=== PATIENT | female | born 1960 | race Caucasian/White ===

== ENCOUNTER 2017-10-16 07:50 | Outpatient (CLI) | payer BC | END 2017-10-16 07:51 | disposition home or self-care (01) | LOC: BICMAMMO 07:50 | PROVIDERS: ATTEND Obstetrics & Gynecology | DX: Z12.31 Encounter for screening mammogram for malignant neoplasm of breast (principal) | CPT/HCPCS: 77063; 77067 ==

== ENCOUNTER 2018-09-15 13:30 | Outpatient (CLI) | payer BC ==
[2018-09-15 14:14] LABS: Mean Corpuscular HGB CONC 34.5 g/dL (32.0-36.0); Mean Corpuscular Hemoglobin 33.9 pg (27.0-31.0); Mean Corpuscular Volume 98.3 fL (78.0-98.0); Mean Platelet Volume 8.4 fL (7.4-10.4); Platelet Count 213 thou/uL (130-400); RBC Distribution Width 11.4 % (11.5-14.5); Red Blood Cell (RBC) Count 4.14 mill/uL (4.20-5.40); White Blood Cell (WBC) Count 4.5 thou/uL (4.8-10.8)
== END 2018-09-15 13:31 | disposition home or self-care (01) ==
LOC: LABBT 13:30
PROVIDERS: ATTEND Obstetrics & Gynecology
DX: Z01.812 Encounter for preprocedural laboratory examination (principal); D25.9 Leiomyoma of uterus, unspecified; R10.2 Pelvic and perineal pain
CPT/HCPCS: 85027; 86850; 86900; 86901

== ENCOUNTER 2018-09-21 06:05 | Day surgery (SDC) | payer BC ==
[2018-09-15 16:31] VITALS: BMI 21.7
[2018-09-21] MEDS ORDERED: Bupivacaine HCl 0.5%/Epinephrine 1:200,000/PF 30 ml Vial ONE (06:28)
[2018-09-21] MEDS ORDERED: Gabapentin 300 MG CAP ONE (06:43)
[2018-09-21] MEDS ORDERED: CeleCOXIB 100 MG CAP ONE (06:43)
[2018-09-21] MEDS ORDERED: Famotidine/PF 20 mg/2ml Vial ONE (06:44)
[2018-09-21] MEDS ORDERED: Fentanyl 100 MCG/2 ML VIAL ONE (07:10)
[2018-09-21] MEDS ORDERED: Ropivacaine 0.2% 550 ML 750 ML NERVE BLCK SCH ×2 (07:45→09:30)
[2018-09-21] MEDS ORDERED: Bacitracin Zinc Ointment 30 gm TUBE ONE (09:25)
[2018-09-21] MEDS ORDERED: Ropivacaine HCl/PF 750 ML NERVE BLCK SCH (09:30)
[2018-09-21] MEDS ORDERED: diphenhydrAMINE 25 MG CAP PO PRN (09:31)
[2018-09-21] MEDS ORDERED: Morphine 4 MG/ML VIAL SLOW IVP PRN (09:31)
[2018-09-21] MEDS ORDERED: Promethazine HCl 25 MG/ML VIAL IM PRN ×2 (09:31→09:51)
[2018-09-21] MEDS ORDERED: HYDROcodone/Acetaminophen 5/325 mg Tablet PO PRN ×2 (09:31)
[2018-09-21] MEDS ORDERED: Bisacodyl 10 MG SUPP PR PRN (09:31)
[2018-09-21] MEDS ORDERED: Zolpidem Tartrate 5 MG TAB PO PRN (09:31)
[2018-09-21] MEDS ORDERED: Promethazine HCl 25 MG/ML VIAL SLOW IVP PRN (09:51)
[2018-09-21] MEDS ORDERED: Ondansetron HCl/PF 4 MG/2 ML Vial IVP PRN (09:51)
[2018-09-21] MEDS: Ketorolac Tromethamine 30 MG/ML VIAL IVP SCH ×3 (10:54→23:45)
[2018-09-21] MEDS: Sodium Chloride 0.9% 1,000 ML IV SCH ×3 (11:11→21:32)
[2018-09-21] MEDS ORDERED: Simethicone Chewable 80 MG TAB PO PRN (13:00)
--- NOTE | 2018-09-21 15:56 | OP ---
DATE OF PROCEDURE: 09/21/2018 PREOPERATIVE DIAGNOSES: Fibroid uterus, pelvic pain. POSTOPERATIVE DIAGNOSES: Fibroid uterus, pelvic pain. PROCEDURES PERFORMED: Robotic-assisted total laparoscopic hysterectomy with extracorporeal morcellation of fibroid uterus to self-contained bag and placement of On-Q pump. PATIENT ACCOUNTS SPECIALIST: Marlene Mckeon MD ANESTHESIA: GETA. COMPLICATIONS: None. ESTIMATED BLOOD LOSS: Approximately 50 mL. OPERATIVE FINDINGS: 1. Enlarged fibroid uterus with a dominant 5 to 6 cm fundal mass. Normal-appearing tubes and ovaries bilaterally. 2. Normal-appearing liver edge, and no intraabdominal adhesive disease. DESCRIPTION OF PROCEDURE: The patient was taken back to the OR with IV fluids running. Once the patient was in the OR, she was placed in dorsal supine position and general anesthesia was obtained. Once the patient was asleep, she was placed in low dorsal lithotomy position, and the abdomen and vagina were prepped and draped in normal fashion for gynecologic surgery. Surgeons were gowned and gloved and scrubbed in. Beginning vaginally, a Gutiérrez catheter was placed into the bladder and approximately 50 mL of urine drained. The Gutiérrez was then assembled to a Jailene syringe and placed onto the sterile field. An operative speculum was placed in the vagina and anterior lip of the cervix was identified and grasped with a single-tooth tenaculum. The uterus was sounded to approximately 7 to 8 cm. The cervix was serially dilated to allow for placement of Roma-Rich manipulator tip. Roma-Rich manipulator was assembled with an 8 cm tip and a 4 cm cervical cup, and placed into the uterus and vagina in routine fashion. The surgeon's gloves were changed and attention was then turned to the laparoscopic portion of the case. Beginning at the supraumbilical fold, local anesthesia was placed underneath the skin. A 12 mm skin incision was made with a scalpel. A Veress needle was placed through this incision and the abdomen was insufflated without difficulty. A 12 mm trocar was placed through this incision and the patient was then placed in Trendelenburg position and with the laparoscope through the port, the above findings were noted. At this time, the uterine specimen was examined with the laparoscope and decision was made to remove the specimen with a self-contained bag morcellation technique. Three additional ports were placed in similar fashion under direct visualization of the left and right lower quadrant 8 mm robotic ports and the right upper quadrant 11 mm port. Once all the ports were placed, the laparoscope and the 12 mm port were removed, and the supraumbilical incision was extended to approximately 2 cm. A mini-Reece was placed into the supraumbilical incision and a GelPOINT cap was placed over this retractor with the trocar advanced through the GelPOINT. Next, prior to placement of the GelPOINT lid, the laparoscopic bag was placed into the abdominal cavity. After the GelPOINT cap was replaced and the abdomen was insufflated, the patient was placed in Trendelenburg position and the robotic arms were docked to the robotic trocars. Beginning on the patient's left side, the left fallopian tube was elevated, grasped, and transected using a combination of bipolar and monopolar cautery. The left utero-ovarian ligament was cauterized and transected allowing the left ovary to fall away to the pelvic sidewall. The left ureter was easily visualized and noted to be well away from the planned dissection areas. The round ligament on the patient's left side was identified, cauterized, and transected. The anterior and posterior leaves were then dissected toward the level of the uterine artery. The anterior leaf was then dissected down over the cervix and the bladder was dissected away from the cervix and planned colpotomy site by layering the cervicovesical fascia and dissecting it away from the cervix. The uterine artery on the patient's left side was then skeletonized. It was then cauterized and transected. Attention was then turned to the contralateral side. The right fallopian tube was elevated and transected using a combination of monopolar and bipolar cautery. The right utero-ovarian ligament was cauterized and transected. The ureter on the patient's right side was noted to be well away from the uterus in planned dissection areas. The round ligament was identified, cauterized, and transected. The anterior and posterior leaves were dissected down toward the level of the uterine artery, which was then skeletonized. The anterior leaf was taken down to the contralateral side, where the bladder flap had been created. The bladder was then further dissected away from the planned colpotomy site. The uterine artery on the patient's right side was cauterized and transected. Once the blood supply had been managed on both sides of the uterus and the bladder flap had been created and the bladder dissected away from the colpotomy site, the colpotomy was then performed circumferentially under direct visualization and without difficulty. After the colpotomy was completed, the monopolar scissors were removed and a needle city driver was placed into the operative field. Stratafix suture was then introduced under direct visualization with the vaginal cuff was closed in a running fashion and in two layers. After the vaginal cuff was removed and the needle was removed from the operative field, the vaginal cuff and pelvic sidewalls were copiously irrigated and suctioned dry. No areas of bleeding were noted. The laparoscopic bag was then directed down into toward the cul-de-sac. It was opened up and the uterine specimen was placed into the bag. The bag was then brought through the GelPOINT without difficulty. The On-Q catheter tip was then placed under direct visualization in the anterior abdominal wall in the midline. The catheter was then directed down into the cul-de-sac and it was primed with 0.25% Marcaine. After the catheter was primed, the trocars were removed. The GelPOINT lid was removed and the laparoscopic bag was opened to the umbilical incision. The Reece mini retractor was then replaced within the laparoscopic bag over the next several minutes. The uterine and fibroid specimen was morcellated using a technique with a scalpel. After the entire specimen was morcellated, it was sent for pathologic review. The EndoCatch bag and Reece retractor were removed from the umbilical port. All instruments and counts were correct. The port sites were then cleaned. The fascia of the supraumbilical port was closed with Vicryl suture in a running fashion. All four skin incisions were then closed with Monocryl suture. The right upper quadrant and left and right lower quadrant ports were dressed with Dermabond dressing. Antibiotic ointment was placed over the umbilical incision. Sterile cotton balls and a Tegaderm dressing were placed over this incision, and a Tegaderm was placed over the On-Q catheter insertion site. The vagina was inspected at the end of the case with no bleeding noted. The patient tolerated the procedure well. She was cleaned, dried, taken out of lithotomy position, extubated, and transferred to the recovery room in good condition. Job ID: [id number]
[2018-09-21] MEDS: Ibuprofen 800 MG TAB PO SCH (21:30)
[2018-09-22 06:24] LABS: Hemoglobin 11.9 g/dL (12.0-16.0); Mean Corpuscular HGB CONC 34.2 g/dL (32.0-36.0); Mean Corpuscular Hemoglobin 34.1 pg (27.0-31.0); Mean Corpuscular Volume 99.5 fL (78.0-98.0); Mean Platelet Volume 8.5 fL (7.4-10.4); Platelet Count 155 thou/uL (130-400); RBC Distribution Width 11.6 % (11.5-14.5); White Blood Cell (WBC) Count 7.1 thou/uL (4.8-10.8)
[2018-09-22] MEDS: Ketorolac Tromethamine 30 MG/ML VIAL IVP SCH (06:33)
[2018-09-22 06:36] VITALS: TEMP 98.3
[2018-09-22 07:49] VITALS: BP 110/73
--- NOTE | 2018-09-22 08:26 | PDOC.EVN ---
Event Note - Event Note Event Note: PT seen and evaluated post op day 1. Pt is doing very well. Pain is well controlled. She has been up and ambulatory to the bathroom without difficulty. She is urinating normally. She is passing gas. She is eating well. No leg pain or swelling. VSS. H&H stable PT resting very comfortable in bed. No distress. Afebrile. Normal respiratory effort. Abdomen soft, non distended. Healing incisions with On Q pump in place. No leg swelling or tenderness. Pt is mentation appropriately. Pt s/p RATLH/BS. Pain well controlled with On Q pump. Will plan to d/c today. Pt has 2 week f/u scheduled and was given instructions on On Q pump. Rx for tramadol has been sent to pharmacy.
[2018-09-22] MEDS: Ibuprofen 800 MG TAB PO SCH (08:41)
[2018-09-22] MEDS: Sodium Chloride 0.9% 1,000 ML IV SCH (08:47)
[2018-09-22] MEDS ORDERED: Calcium Citrate 950 MG TAB PO SCH (09:00)
[2018-09-22] MEDS ORDERED: Multivit, Therapeutic 1 TAB PO SCH (09:00)
[2018-09-22] MEDS ORDERED: Citalopram 20 MG TAB PO PRN (09:00)
--- NOTE | 2018-09-23 02:02 | DIS ---
DATE OF ADMISSION: 09/21/2018 DATE OF DISCHARGE: 09/22/2018 ADMISSION DIAGNOSIS: Planned hysterectomy for fibroid uterus. POSTOPERATIVE DIAGNOSIS: Status post hysterectomy. HOSPITAL COURSE: Ms. Anya Garcia was admitted on 09/21/2018, and underwent a planned robotic-assisted total laparoscopic hysterectomy with bilateral salpingectomy with bag-contained extracorporeal morcellation and placement of ON-Q pump. On postoperative day #1, she met her postoperative goals and was ready for discharge. She was discharged home with instructions for pelvic rest, instructions for use of the ON-Q pump and removal, and plan return to our office for followup in 2 weeks. The patient's questions have been answered and she was discharged home in good condition. Job ID: [id number]
== END 2018-09-22 10:52 | disposition home or self-care (01) ==
LOC: SDC 06:05 → UNDOADMIN 06:05 → SURG A 06:05 → EDSTATUS 10:00 → 3SE 10:42 → SURG A 10:42 → SDC 09-22 10:52 → UNDODISIN 09-22 10:52
PROVIDERS: ATTEND Obstetrics & Gynecology
PROC: 0UT94ZZ Resection of Uterus, Percutaneous Endoscopic Approach (ICD-10-PCS; principal; 2018-09-21)
PROC: 0UT74ZZ Resection of Bilateral Fallopian Tubes, Percutaneous Endoscopic Approach (ICD-10-PCS; principal; 2018-09-21)
DX: D25.1 Intramural leiomyoma of uterus (principal); N88.8 Other specified noninflammatory disorders of cervix uteri; F32.9 Major depressive disorder, single episode, unspecified; Z91.040 Latex allergy status; Z79.899 Other long term (current) drug therapy
CPT/HCPCS: 36415; 85027; 88307; A4306; J0670; J0690; J1885; J2795; J3010; S0028

== ENCOUNTER 2018-09-30 20:21 | Emergency (ER) | payer BC ==
[2018-09-30 21:12] LABS: Hemoglobin 11.9 g/dL (12.0-16.0); Mean Corpuscular HGB CONC 34.2 g/dL (32.0-36.0); Mean Corpuscular Hemoglobin 33.6 pg (27.0-31.0); Mean Corpuscular Volume 98.2 fL (78.0-98.0); Mean Platelet Volume 7.4 fL (7.4-10.4); Platelet Count 218 thou/uL (130-400); Red Blood Cell (RBC) Count 3.54 mill/uL (4.20-5.40); White Blood Cell (WBC) Count 6.5 thou/uL (4.8-10.8)
[2018-09-30] MEDS ORDERED: Morphine 4 MG/ML VIAL ONE (21:20)
[2018-09-30 21:32] LABS: Band 8 % (5-11); Eosinophils 1 % (0-10); Lymphocytes 15 % (21-51); MDiff Complete? YES; Monocytes 14 % (0-10); Neutrophil 62 % (42-75)
--- NOTE | 2018-10-01 07:37 | SS ---
DATE OF ADMISSION: 09/30/2018 DATE OF DISCHARGE: 10/01/2018 TIME OF SERVICE: 2145 hours. PRESENTING COMPLAINT: Vaginal bleeding 9 days post hysterectomy. HISTORY OF PRESENT ILLNESS: Ms. Garcia is a 58-year-old, G2, P2, status post laparoscopic hysterectomy with extracorporeal uterine morcellation on the . She had unremarkable postoperative course, started having some bleeding earlier this week and had an office exam by Dr. Carnes. She states she was started on some antibiotics, which she continues on. Her bleeding increased today. She states it is somewhat bright red. She denies fever, nausea, or vomiting. She is voiding with ease. ELECTRIC DRILL OPERATOR HISTORY: x2. Hysterectomy as noted. History of a LEEP. MEDICAL HISTORY: Osteoporosis, atrophic vaginitis and depression. SURGICAL HISTORY: Orthopedic knee replacement, hysteroscopic ablation, colonoscopy, LEEP and hysterectomy. ALLERGIES: DENIES. MEDICATIONS: Antibiotics. SOCIAL HISTORY: Denies tobacco, alcohol, or drug use. FAMILY HISTORY: Noncontributory. REVIEW OF SYSTEMS: Noncontributory. PHYSICAL EXAMINATION: GENERAL: White female, resting comfortably. VITAL SIGNS: Blood pressure 118/72, pulse 91, respirations 18, temperature 98.5. : Limited. ABDOMEN: Soft and nontender without rebound or guarding. Incisions are healing well. The patient has mild skin reaction to Dermabond noted. Vulva is without lesions. The vagina has a slight to moderate amount of old blood. The cuff is intact, but a small amount of old blood could be seen coming through the cuff. No active bleeding is noted. LABORATORY DATA: The patient's hematocrit postoperatively was 34.8 today, it is exactly the same at 34.8. White count has decreased from 7.1-6.5 postoperatively. Platelet count is normal limits at 218. IMPRESSION: Small amount of cuff bleeding of old blood without active bleeding noted, most likely consistent with small cuff hematoma, now organizing and liquefying and coming through the vaginal cuff. PLAN: The patient was reassured. She will continue antibiotics, re-present if she develops fever or heavy bleeding and keep scheduled followup with Dr. Carnes's office in 4 days. Job ID: [id number]
== END 2018-09-30 22:22 | disposition home or self-care (01) ==
LOC: ERS 20:21
DX: N99.820 Postprocedural hemorrhage of a genitourinary system organ or structure following a genitourinary system procedure (principal); F32.9 Major depressive disorder, single episode, unspecified
CPT/HCPCS: 36415; 85025; 96374; J2270

== ENCOUNTER 2018-10-18 13:29 | Outpatient (CLI) | payer BC ==
--- NOTE | 2018-10-18 15:52 | MMO ---
Bilateral MAMMO Bilat Screen DDI+DELPHINE. CLINICAL HISTORY: Patient is 58 years old and is seen for screening. The patient has no family history of breast cancer. The patient has no personal history of cancer. VIEWS: The views performed were: bilateral craniocaudal with tomosynthesis and bilateral mediolateral oblique with tomosynthesis. FILMS COMPARED: The present examination has been compared to prior imaging studies performed at [facility] on 09/22/2014, 10/05/2015, 10/15/2016 and 10/16/2017. MAMMOGRAM FINDINGS: The breasts are heterogeneously dense, which could obscure a lesion on mammography. There is an area of architectural distortion seen in the CC view only seen in the central region of the right breast. In the left breast, there are no suspicious masses, calcifications or areas of architectural distortion. IMPRESSION: AREA OF ARCHITECTURAL DISTORTION IN THE RIGHT BREAST REQUIRES ADDITIONAL EVALUATION. RECOMMEND DIAGNOSTIC MAMMOGRAM. ULTRASOUND MAY ALSO PROVE USEFUL AT RECALL. THE RESULTS OF THIS EXAM WERE SENT TO THE PATIENT. ACR BI-RADS Category 0 - Incomplete: Need additional imaging evaluation. [facility] will notify the patient of the need for additional imaging services. MAMMOGRAPHY NOTE: 1. A negative mammogram report should not delay a biopsy if a dominant of clinically suspicious mass is present. 2. Approximately 10% to 15% of breast cancers are not detected by mammography. 3. Adenosis and dense breasts may obscure an underlying neoplasm.
== END 2018-10-18 13:30 | disposition home or self-care (01) ==
LOC: BICMAMMO 13:29
PROVIDERS: ATTEND Obstetrics & Gynecology
DX: Z12.31 Encounter for screening mammogram for malignant neoplasm of breast (principal); Q83.9 Congenital malformation of breast, unspecified
CPT/HCPCS: 77063; 77067

== ENCOUNTER 2018-10-21 09:00 | Outpatient (CLI) | payer BC ==
--- NOTE | 2018-10-21 10:29 | MMO ---
Right Breast MAMMO Unilat Diag DDI RT+DELPHINE. CLINICAL HISTORY: Patient is 58 years old and is seen for additional evaluation requested at current screening. The patient has no family history of breast cancer. The patient has no personal history of cancer. VIEWS: The views performed were: right craniocaudal spot compression with tomosynthesis and right mediolateral with tomosynthesis. FILMS COMPARED: The present examination has been compared to prior imaging studies performed at [facility] on 10/15/2016, 10/16/2017, 10/18/2018 and 10/21/2018. MAMMOGRAM FINDINGS: Architectural distortion does not persist on additional view. Incidental complex cyst. Please refer to separate US report. IMPRESSION: FINDING IN THE RIGHT BREAST IS PROBABLY BENIGN. FOLLOW-UP IN 6 MONTHS IS RECOMMENDED. SIX MONTH FOLLOW UP RIGHT BREAST ULTRASOUND. THE RESULTS OF THIS EXAM WERE SENT TO THE PATIENT. ACR BI-RADS Category 3 - Probably benign finding - short interval follow-up suggested. [facility] will notify the patient of the need for additional imaging services. MAMMOGRAPHY NOTE: 1. A negative mammogram report should not delay a biopsy if a dominant of clinically suspicious mass is present. 2. Approximately 10% to 15% of breast cancers are not detected by mammography. 3. Adenosis and dense breasts may obscure an underlying neoplasm. Reported by: PARISA BROWN MD Electonically Signed: [id number]
--- NOTE | 2018-10-21 12:15 | ULT ---
RIGHT BREAST ULTRASOUND: HISTORY: Possible architectural distortion in the right breast, only seen on the CC view. COMPARISON: 11/22/2014. FINDINGS: Targeted sonographic imaging of the right breast is performed at the 11-1 o'clock position. At the 1 2 o'clock position, there is a well-circumscribed hypoechoic focus with through transmission/posterio r acoustic enhancement measuring 0.6 x 0.6 x 0.5 cm suggesting a slightly complex cyst. The cyst is not appreciated on the previous examination. It is uncertain if this cyst has developed in the inter im or if a different portion of the breast at the 12 o'clock position was scanned previously. Given what appear to be overall probably benign features, 6-month followup right breast ultrasound is recom mended. IMPRESSION: BIRADS category 3, probably benign. RECOMMENDATION: Six-month followup right breast ultrasound. POS: DESTINY
== END 2018-10-21 09:01 | disposition home or self-care (01) ==
LOC: BICMAMMO 09:00
PROVIDERS: ATTEND Obstetrics & Gynecology
DX: N63.10 Unspecified lump in the right breast, unspecified quadrant (principal)
CPT/HCPCS: G0279

== ENCOUNTER 2019-04-14 14:50 | Outpatient (CLI) | payer BC ==
--- NOTE | 2019-04-14 15:14 | ULT ---
RIGHT BREAST ULTRASOUND: HISTORY: Six-month followup of a circumscribed anechoic mass in the right breast a 12 o'clock 6 cm from the ni pple. COMPARISON: Comparison is made to a prior 10/21/2018 study. FINDINGS: Again noted is a circumscribed hypoechoic/anechoic mass measuring 0.5 x 0.5 x 0.6 cm, stable. There may be some minimal debris within this mass. There is through sound transmission. IMPRESSION: BIRADS category 3 - probably benign findings. Recommend followup bilateral mammogram in 1 year from the previous study which was dated 10/21/2018 and at that time a followup right breast ultrasound coul d be performed as well to document expected stability. POS: OFF
== END 2019-04-14 14:51 | disposition home or self-care (01) ==
LOC: BICULT 14:50
PROVIDERS: ATTEND Obstetrics & Gynecology
DX: R92.2 Inconclusive mammogram (principal)

== ENCOUNTER 2019-10-24 13:58 | Outpatient (CLI) | payer BC ==
--- NOTE | 2019-10-24 15:47 | MMO ---
Bilateral MAMMO Bilat Diag DDI+DELPHINE. CLINICAL HISTORY: Patient is 59 years old and is seen for diagnostic exam. The patient has no family history of breast cancer. The patient has no personal history of cancer. VIEWS: The views performed were: bilateral craniocaudal with tomosynthesis; bilateral mediolateral oblique with tomosynthesis; bilateral mediolateral with tomosynthesis; and bilateral exaggerated craniocaudal. FILMS COMPARED: The present examination has been compared to prior imaging studies performed at [facility] on 10/21/2018, 04/14/2019 and 10/24/2019. This study has been interpreted with the assistance of computer-aided detection. MAMMOGRAM FINDINGS: The breasts are heterogeneously dense, which could obscure a lesion on mammography. Finding 1: Benign calcifications are noted bilaterally. Finding 2: US follow up of right breast mass is recommended in 6 mos. IMPRESSION: FINDING 1: FINDINGS IN BOTH BREASTS ARE BENIGN. FINDING 2: FINDING IN THE LEFT BREAST IS PROBABLY BENIGN. FOLLOW-UP IN 6 MONTHS IS RECOMMENDED. THE RESULTS OF THIS EXAM WERE SENT TO THE PATIENT. ACR BI-RADS Category 3 - Probably benign finding - short interval follow-up suggested. [facility] will notify the patient of the need for additional imaging services. MAMMOGRAPHY NOTE: 1. A negative mammogram report should not delay a biopsy if a dominant of clinically suspicious mass is present. 2. Approximately 10% to 15% of breast cancers are not detected by mammography. 3. Adenosis and dense breasts may obscure an underlying neoplasm. Reported by: THAI NOE MD Electonically Signed: [id number]
--- NOTE | 2019-10-24 15:54 | ULT ---
RIGHT BREAST ULTRASOUND: Date: 10/24/2019 HISTORY: Follow-up right breast nodule. COMPARISON: Breast ultrasound of 04/14/2019. Correlation made with mammogram from today. FINDINGS: The well circumscribed hypoechoic mass with through-transmission is stable, measuring about 6.0 mm. IMPRESSION: BI-RADS Category 3 - Probably benign findings. 6 month follow-up left breast ultrasound is recommende d. The facility will notify patient of need for additional imaging services.
== END 2019-10-24 13:59 | disposition home or self-care (01) ==
LOC: BICMAMMO 13:58
PROVIDERS: ATTEND Obstetrics & Gynecology
DX: N63.10 Unspecified lump in the right breast, unspecified quadrant (principal)
CPT/HCPCS: 77066; G0279

== ENCOUNTER 2020-09-20 14:39 | Outpatient (CLI) | payer BC | END 2020-09-20 14:40 | disposition home or self-care (01) | LOC: BICMAMMO 14:39 | PROVIDERS: ATTEND Obstetrics & Gynecology | DX: N63.11 Unspecified lump in the right breast, upper outer quadrant (principal) | CPT/HCPCS: 77066; G0279 ==

== ENCOUNTER 2020-10-11 16:15 | Outpatient (CLI) | payer BC ==
[2020-10-12 06:42] LABS: SARS-CoV-2 PCR by NAA Not Detected (NotDetected)
== END 2020-10-11 16:16 | disposition home or self-care (01) ==
LOC: LABBT 16:15
PROVIDERS: ATTEND Orthopaedic Surgery
DX: Z01.812 Encounter for preprocedural laboratory examination (principal); S52.502A Unspecified fracture of the lower end of left radius, initial encounter for closed fracture; Z20.822 Contact with and (suspected) exposure to COVID-19
CPT/HCPCS: U0003; U0005

== ENCOUNTER 2020-10-12 07:46 | Day surgery (SDC) | payer BC ==
[2020-10-11 16:41] VITALS: BMI 22.5
[2020-10-12] MEDS ORDERED: Fentanyl 100 MCG/2 ML VIAL ONE ×2 (09:20→10:12)
[2020-10-12] MEDS ORDERED: Midazolam HCl 2 mg/2 ml Vial ONE (09:20)
[2020-10-12] MEDS ORDERED: Lidocaine 1% (PF) 30 ML VIAL ONE (09:20)
[2020-10-12] MEDS ORDERED: Fentanyl 100 MCG/2 ML VIAL SLOW IVP PRN (10:04)
[2020-10-12] MEDS ORDERED: traMADol HCl 50 MG TAB PO PRN ×2 (10:15)
[2020-10-12] MEDS ORDERED: Ropivacaine 0.2% 550 ML 550 ML NERVE BLCK SCH (10:15)
[2020-10-12] MEDS ORDERED: Promethazine HCl 25 MG/ML VIAL IM PRN (10:15)
[2020-10-12] MEDS ORDERED: Ondansetron PF 4 MG/2 ML Vial IVP PRN (10:15)
[2020-10-12] MEDS ORDERED: Zolpidem Tartrate 5 MG TAB PO PRN (10:15)
[2020-10-12] MEDS ORDERED: HYDROcodone/Acetaminophen 10/325 mg Tablet PO PRN ×2 (10:15)
[2020-10-12] MEDS ORDERED: Ropivacaine 0.5% HCl/PF (150 MG/30 ML VIAL) ONE (10:16)
[2020-10-12] MEDS ORDERED: PROPOFOL 200 MG/20 ML VIAL ONE (10:16)
[2020-10-12] MEDS ORDERED: Dexamethasone 20 MG/5 ML VIAL ONE (10:16)
[2020-10-12] MEDS ORDERED: ePHEDrine Sulfate 50 MG/10 ML VIAL ONE (10:16)
[2020-10-12] MEDS ORDERED: Ropivacaine 2% HCl/PF (20 MG/10 ML VIAL) ONE (10:16)
[2020-10-12] MEDS ORDERED: Ondansetron PF 4 MG/2 ML Vial ONE (10:16)
[2020-10-12] MEDS ORDERED: PHENYLEPHRINE-NS 100 MCG/ML 10 ML SYRINGE ONE (10:16)
[2020-10-12] MEDS ORDERED: Ketorolac Tromethamine 30 MG/ML VIAL IVP SCH (12:00)
== END 2020-10-12 13:20 | disposition home or self-care (01) ==
LOC: SDC 07:46
PROVIDERS: ATTEND Orthopaedic Surgery
PROC: 3E0T3BZ Introduction of Anesthetic Agent into Peripheral Nerves and Plexi, Percutaneous Approach (ICD-10-PCS; principal; 2020-10-12)
PROC: 0PSJ04Z Reposition Left Radius with Internal Fixation Device, Open Approach (ICD-10-PCS; principal; 2020-10-12)
DX: S52.502A Unspecified fracture of the lower end of left radius, initial encounter for closed fracture (principal); G89.18 Other acute postprocedural pain; M17.11 Unilateral primary osteoarthritis, right knee; Z79.899 Other long term (current) drug therapy; Z91.040 Latex allergy status; Z91.048 Other nonmedicinal substance allergy status
CPT/HCPCS: 76000; A4306; C1713; J0690; J2001; J2250; J2795; J3010

== ENCOUNTER 2021-11-01 14:03 | Outpatient (CLI) | payer BC | END 2021-11-01 14:04 | disposition home or self-care (01) | LOC: BICMAMMO 14:03 | PROVIDERS: ATTEND Obstetrics & Gynecology | DX: Z12.31 Encounter for screening mammogram for malignant neoplasm of breast (principal) | CPT/HCPCS: 77063; 77067 ==